=== PATIENT | female | born 1990 | race Caucasian/White ===

== ENCOUNTER 2017-10-18 17:59 | Emergency (ER) | payer OTHER ==
[~2017-10-18] VITALS: Ht 157.5 cm; Wt 65.8 kg
[~2017-10-18 17:59] MED LIST: ACETAMINOPHEN-1 EAC1 PO; AMOXICILLIN500 M1 PO; AZITHROMYCIN 2250 MG PO; BIRTH CONTROL; FLONASE 0.05%50 MCG NASAL; IBUPROFEN 600600 M1 PO; LEVAQUIN 750 M750 MG PO; LORATIDINE 10 M10 M1 PO; OMEPRAZOLE 20 M20 MG PO; PEPCID20 MG PO; PREDNISONE 10 M10 MG PO; PROAIR HFA8.5 GM INH; PROMETHAZINE-C120 ML PO; SPRINTEC1 EACH PO; ZPAK PO
[2017-10-18 18:57] LABS: ABSOLUTE BASOPHILS 0.1 thou/uL (0.0-0.2); ABSOLUTE EOSINOPHILS 0.3 thou/uL (0.0-0.7); ABSOLUTE LYMPHOCYTES 2.7 thou/uL (0.8-5.3); ABSOLUTE MONOCYTES 0.7 thou/uL (0.0-1.2); ABSOLUTE NEUTROPHILS 5.1 thou/uL (1.6-8.1); BASOPHILS 0.9 %; EOSINOPHILS 3.5 %; HEMATOCRIT 38.5 % (37.0-47.0); HEMOGLOBIN 13.2 gm/dL (12.0-15.0); LYMPHOCYTES 30.6 %; MCH 31.5 pg (26.0-34.0); MCHC 34.3 g/dL (28.0-37.0); MCV 91.9 fL (80.0-100.0); NUCLEATED RBCS 0 /100WBC; PLATELET COUNT* 217 thou/uL (150-400); RBC 4.19 mil/uL (4.20-5.00); RDW-CV 12.5 % (10.5-14.5); WBC 8.9 thou/uL (4.0-11.0)
[2017-10-18 19:17] LABS: ALBUMIN 3.9 g/dL (3.4-5.0); ALKALINE PHOSPHATASE 76 U/L (46-116); ANION GAP 6 mmol/L (7-16); BUN 16 mg/dL (7-18); CALCIUM 8.8 mg/dL (8.5-10.1); CHLORIDE 102 mmol/L (98-107); CO2 29 mmol/L (21-32); CREATININE 0.7 mg/dL (0.6-1.3); GLUCOSE 96 mg/dL (70-99); SGOT 23 U/L (15-37); SGPT 22 U/L (30-65); SODIUM 137 mmol/L (136-145); TOTAL BILIRUBIN 0.3 mg/dL (<0.1-1.0); TOTAL PROTEIN 7.5 g/dL (6.4-8.2); TROPONIN-I LEVEL <0.06 ng/mL (<0.06)
[2017-10-18] MEDS ORDERED: VENTOLIN HFA 1818 GM INH (19:28)
[2017-10-18] MEDS ORDERED: PREDNISONE50 MG PO (19:28)
[2017-10-18 19:54] VITALS: BP 112/60
--- NOTE | 2017-10-19 14:52 | EKG ---
[place] [address] ELECTROCARDIOGRAM REPORT Name: [facility]LAYNE LOAIZA [id number] Admission: 10/18/17 Attend Phys: Discharge: 10/18/17 Date of : [birth year] Report #: [id number] THIS REPORT FOR: //name// [facility] ED Test Date: 2017-10-18 Test Time: 18:05:26 Pat Name: BLAYNE LOAIZA Department: Room: Gender: F [employer] Specialist: : [id number] Requested By: Weston Mota Order Number: [id number] MD: Francis Barrera Measurements Intervals [place] Rate: 81 P: 14 ND: 139 QRS: 48 QRSD: 82 T: 28 QT: 354 QTc: 411 Interpretive Statements Sinus rhythm Compared to ECG 07/07/2015 18:11:11 No significant changes Electronically Signed On 10-19-2017 14:52:39 CDT by Francis Barrera [email or web address] <ELECTRONICALLY SIGNED> By: Francis Barrera MD, [facility] 10/19/17 1452 1805 1805 Francis Barrera MD, FACC /EPI
== END 2017-10-18 19:55 | disposition home or self-care (01) ==
LOC: M.ERS 17:59
PROVIDERS: Nurse Practitioner Family
DX: J40 Bronchitis, not specified as acute or chronic (principal); K21.9 Gastro-esophageal reflux disease without esophagitis; Z87.891 Personal history of nicotine dependence